=== PATIENT | male | born 2000 | race Caucasian/White ===

== ENCOUNTER 2023-03-20 23:40 | Emergency (ER) | payer SELFPAY ==
[2023-03-20 23:45] VITALS: PULSE 86; RESP 18; TEMP 36.9; O2SAT 99; BMI 27.7
--- NOTE | 2023-03-21 00:01 | ECG_ITS ---
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
--- NOTE | 2023-03-21 00:13 | ED.CHESTPAI1 ---
HPI - Chest Pain General Chief Complaint: Chest Pain Stated Complaint: CHEST PAIN Time Seen by Provider: 03/20/23 23:51 Source: patient Mode of arrival: ambulance Limitations: no limitations History of Present Illness HPI narrative: This 22-year-old male with a history of epilepsy who is on Keppra presents for evaluation of left-sided chest pain that has been ongoing since September, 7 months. Chin and his girlfriend recently relocated to [place] from [place]. He states that he has not had a chance to see a doctor for this chest pain. It is nonradiating. He is not having any pain at this time. It is not associated with shortness of breath, dizziness or diaphoresis. He does use marijuana but does not smoke cigarettes. He denies any abdominal pain nausea vomiting or diarrhea. He thinks that his pain is related to acid reflux although he denies that he is having any belching, burning or brackish taste in his mouth at any time. He has not taken any medications for reflux because he does not like to mix medications with his seizure medications. MD complaint: Reports chest pain Onset (ago): month(s) () Risk Factors Coronary artery disease risk factors: none Related Data Home Medications Medication Instructions Recorded Confirmed levetiracetam 750 mg tablet 750 mg PO BID 03/20/23 03/20/23 (Keppra) Allergies Allergy/AdvReac Type Severity Reaction Status Date / Time No Known Drug Allergies Allergy Verified 03/20/23 23:49 Review of Systems ROS Status of ROS 10 or more systems reviewed and unremarkable except as noted in history and below [facility] Medical History (Updated 03/21/23 @ 01:52 by Mary Luong MD) Social History Smoking status: Never smoker Exam Narrative Exam Narrative: Nurses note and vital signs reviewed and patient is not hypoxic. General: The patient appears well and in no apparent distress. Patient is resting comfortably on cart. He appears comfortable, he moves easily about the cart, no distress noted Skin: Warm, dry, no pallor noted. There is no rash noted. Head: Normocephalic, atraumatic Eye: Normal conjunctiva, no drainage, EOMI. PERRL Ears, Nose, Mouth, and Throat: oral mucosa is moist. Nares patent. Mouth without vesicles. Ear canals patent. Tm's without Erythema Cardiovascular: Regular Rate and Rhythm, No murmurs rubs or gallops appreciated. There is no reproducible chest wall tenderness or crepitus. There is a large tattoo over the chest wall Respiratory: Patient is in no distress, no accessory muscle use, lungs are clear to auscultation, no wheezing, rales or rhonchi Back: non-tender, no CVA tenderness bilaterally to percussion. GI: Normal bowel sounds, no tenderness to palpation, no masses appreciated. No rebound, guarding, or rigidity noted. Musculoskeletal: The patient has no evidence of calf tenderness, no pitting edema, symmetrical pulses noted bilaterally Neurological: A&O x4, normal speech Psychiatric: Cooperative Constitutional Vital Signs, click to edit/add: Last Vital Signs Temp 98.5 F 03/20/23 23:45 Pulse 86 03/20/23 23:45 Resp 18 03/20/23 23:45 Pulse Ox 99 03/20/23 23:45 O2 Del Method Room Air 03/20/23 23:45 Course Vital Signs Vital signs: Vital Signs Temperature 98.5 F 03/20/23 23:45 Pulse Rate 86 03/20/23 23:45 Respiratory Rate 18 03/20/23 23:45 Pulse Oximetry 99 03/20/23 23:45 Oxygen Delivery Method Room Air 03/20/23 23:45 Temperature 98.5 F 03/20/23 23:45 Pulse Rate 86 03/20/23 23:45 Respiratory Rate 18 03/20/23 23:45 Pulse Oximetry 99 03/20/23 23:45 Oxygen Delivery Method Room Air 03/20/23 23:45 MDM - Chest Pain Medical Records Data Medical records narrative: This 22-year-old male who is otherwise healthy and has a history of epilepsy presents for evaluation of 7 months of left-sided chest pain. It is nonradiating. It is nonreproducible. He thinks it is related to reflux but has not taken any gastrointestinal medications for it. He denies any burning in his mouth or throat, belching nausea or abdominal pain. He does not smoke or drink. He does use marijuana. EKG done upon arrival was a sinus rhythm at 69 bpm with normal axis and no acute changes. Routine labs including troponin, d-dimer, CBC with differential and comprehensive metabolic profile was ordered and is normal. A 2 view chest x-ray was ordered and was reviewed by myself and is normal. He was medicated in the emergency department with ibuprofen and remains hemodynamically stable. He will be discharged home with prescription for ibuprofen and Pepcid. He was encouraged to follow closely with family medicine. The patient's girlfriend states that she is a patient of Dr. Wells and intends to take him to Dr. Wells for his primary care. His heart score is zero. Lab Data Attestation: I reviewed the patient's lab results. Lab results narrative: Labs are normal including a d-dimer and troponin Labs: Lab Results 03/21/23 Range/Units 00:52 WBC 7.5 (4.0-11.0) 10^3/uL RBC 5.48 (4.70-6.10) 10^6/uL Hgb 16.0 (14.0-18.0) g/dL Hct 47.0 (42.0-54.0) % MCV 85.8 (80.0-94.0) fL MCH 29.2 (25.9-34.0) pg MCHC 34.0 (29.9-35.2) g/dL RDW 12.5 (11.0-15.0) % Plt Count 290 (150-450) 10^3/uL MPV 10.1 (9.5-13.5) fL Neut % (Auto) 43.9 (43.0-75.0) % Lymph % (Auto) 39.9 (20.5-60.0) % [place] % (Auto) 9.0 (1.7-12.0) % Eos % (Auto) 6.4 (0.9-7.0) % Baso % (Auto) 0.7 (0.2-2.0) % Neut # (Auto) 3.3 (1.4-6.5) 10^3/uL Lymph # (Auto) 3.0 (1.2-3.8) 10^3/uL [place] # (Auto) 0.7 (0.3-0.8) 10^3/uL Eos # (Auto) 0.5 (0.0-0.7) 10^3/uL Baso # (Auto) 0.1 (0.0-0.1) 10^3/uL Abs Immat Gran (auto) 0.01 (0.00-0.03) 10^3/uL Imm/Tot Granulo (auto) 0.1 (0.0-0.5) % D-Dimer <0.19 (<=0.59) mg/L FEU Sodium 138 (136-145) mmol/L Potassium 3.9 (3.5-5.1) mmol/L Chloride 104 (98-107) mmol/L Carbon Dioxide 33.0 H (21.0-32.0) mmol/L Anion Gap 4.9 BUN 11.0 (7.0-18.0) mg/dL Creatinine 1.01 (0.70-1.30) mg/dL Est GFR ( Amer) >60 (>=60) Est GFR (Non-Af Amer) >60 (>=60) BUN/Creatinine Ratio 10.9 Glucose 91 (74-106) mg/dL Calcium 9.7 (8.5-10.1) mg/dL Total Bilirubin 0.3 (0.2-1.0) mg/dL AST 22 (15-37) U/L ALT 69 H (16-63) U/L Alkaline Phosphatase 86 (46-116) U/L Troponin I High Sens <4.0 L (4.0-76.1) pg/mL Total Protein 7.7 (6.4-8.2) g/dL Albumin 4.0 (3.4-5.0) g/dL Globulin 3.7 g/dL Albumin/Globulin Ratio 1.1 ECG Data Attestation: I personally reviewed and interpreted this ECG as follows: (Sinus rhythm at 69 beats for minute with sinus arrhythmia, moderate right axis deviation, no acute ST segment elevation or T-wave inversion ) Heart Score History: Slightly/Non-Suspicious ECG: Normal Age: <45 years Risk Factors: No Risk Factors Troponin: <Normal Limit Total Heart Score Recommendations & Risks:: 0 Discharge Plan Discharge Chief Complaint: Chest Pain Clinical Impression: Atypical chest pain Time of Disposition Decision: 01:51 Condition: Good Prescriptions / Home Meds: No Action levetiracetam [Keppra] 750 mg tablet 750 mg PO BID Instructions: Noncardiac Chest Pain (ED) Additional Instructions: Use ibuprofen and pepcid as directed for ongoing or worsening pain. Stand Alone Forms: Portal Instructions Referrals: Physician,Non-Staff, MD [Primary Care Provider] - 1 week
[2023-03-21] MEDS: IBUPROFEN 600 MG TABLET PO (00:21)
[2023-03-21 01:01] LABS: Basophils Absolute Auto 0.1 10^3/uL (0.0-0.1); Basophils Percent Auto 0.7 % (0.2-2.0); Eosinophils Absolute Auto 0.5 10^3/uL (0.0-0.7); Eosinophils Percent Auto 6.4 % (0.9-7.0); Immature Granulocytes Abs Auto 0.01 10^3/uL (0.00-0.03); Immature Granulocytes Pct Auto 0.1 % (0.0-0.5); Lymphocytes Percent Auto 39.9 % (20.5-60.0); Mean Corpuscular Hemoglobin 29.2 pg (25.9-34.0); Mean Corpuscular Volume 85.8 fL (80.0-94.0); Mean Platelet Volume 10.1 fL (9.5-13.5); Monocytes Absolute Auto 0.7 10^3/uL (0.3-0.8); Neutrophils Absolute Auto 3.3 10^3/uL (1.4-6.5); Neutrophils Percent Auto 43.9 % (43.0-75.0); Platelet Count 290 10^3/uL (150-450); Red Blood Count 5.48 10^6/uL (4.70-6.10); Red Cell Distribution Width 12.5 % (11.0-15.0); White Blood Count 7.5 10^3/uL (4.0-11.0)
[2023-03-21 01:14] LABS: D Dimer <0.19 mg/L FEU (<=0.59)
[2023-03-21 01:16] LABS: Alanine Aminotransferase 69 U/L (16-63); Albumin Globulin Ratio 1.1; Alkaline Phosphatase 86 U/L (46-116); Anion Gap 4.9; Aspartate Amino Transferase 22 U/L (15-37); BUN Creatinine Ratio 10.9; Bilirubin Total 0.3 mg/dL (0.2-1.0); Calcium 9.7 mg/dL (8.5-10.1); Chloride 104 mmol/L (98-107); Estimated GFR (African America >60 (>=60); Estimated GFR (Non-African Ame >60 (>=60); Globulin 3.7 g/dL; Glucose 91 mg/dL (74-106); Potassium 3.9 mmol/L (3.5-5.1); Sodium 138 mmol/L (136-145); Total Protein 7.7 g/dL (6.4-8.2); Troponin I High Sensitivity <4.0 pg/mL (4.0-76.1)
--- NOTE | 2023-03-21 01:31 | XR_ITS ---
[address] [address] Patient Name: ADRIENNE FERRER MRN: [id number] date: 2000 Sex: M Assigned Patient Location: ER Current Patient Location: ED.MAIN Accession/Order Number: [id number] Exam Date: 03/21/2023 01:37 Report Date: 03/21/2023 01:57 At the request of: GAGE MARKER Procedure: XR chest 2V EXAMINATION:XR chest 2V INDICATION:CP COMPARISON:None TECHNIQUE:Frontal and lateral projections of the chest are submitted. FINDINGS: The cardiomediastinal silhouette is not enlarged. The pulmonary vascularity is within normal limits. The lungs are clear based on chest radiography. There is no costophrenic angle blunting. IMPRESSION: Unremarkable plain film examination of the chest. Electronically authenticated by: CHIP ROSA Date: 03/21/2023 01:57
== END 2023-03-21 02:11 | disposition home or self-care (01) ==
PROVIDERS: Emergency Provider Emergency Medicine
DX: R07.89 Other chest pain (principal); G40.909 Epilepsy, unspecified, not intractable, without status epilepticus; Z79.899 Other long term (current) drug therapy; F12.90 Cannabis use, unspecified, uncomplicated
CPT/HCPCS: 36415; 71046; 80053; 84484; 85025; 85378; 93005; 99285

== ENCOUNTER 2023-04-25 18:05 | Emergency (ER) | payer SELFPAY ==
[2023-04-25 18:19] VITALS: BP 137/76; PULSE 96; RESP 18; TEMP 36.7; O2SAT 96; BMI 35.5
--- NOTE | 2023-04-25 18:32 | ED_ITS ---
Documented by User: Rina Epstein 04/25/23 20:24 HPI - General Adult General Chief complaint: Skin/Abscess/Foreign Body Stated complaint: MOVING LUMP IN SIDE Time Seen by Provider: 04/25/23 18:30 Source: patient and family Mode of arrival: walk-in Limitations: no limitations History of Present Illness HPI narrative: 22 year old male presents to the ED for right-sided abd discomfort. He states he noticed a moveable lump a few months ago. He began to worry that it was something serious which brought him to the ED today. Denies fever, chills, injury, N/V/D, urinary sx. Rates his pain 2/10 at this time. Related Data Home Medications Medication Instructions Recorded Confirmed levetiracetam 750 mg tablet 750 mg PO BID 03/20/23 04/25/23 (Keppra) Allergies Allergy/AdvReac Type Severity Reaction Status Date / Time No Known Drug Allergies Allergy Verified 04/25/23 18:19 Review of Systems ROS Constitutional Denies: fever or chills Cardiovascular Denies: chest pain Respiratory Denies: shortness of breath Gastrointestinal Reports: abdominal pain; Denies: nausea, vomiting, diarrhea or constipation Genitourinary Denies: painful urination, urinary frequency or urinary urgency Musculoskeletal Denies: back pain Integumentary/Breast Denies: rash or changes in skin color [facility] Medical History (Updated 04/25/23 @ 20:18 by Rina Epstein) Social History Smoking status: Never smoker Exam Constitutional Vital Signs, click to edit/add: Last Vital Signs Temp 98.5 F 04/25/23 19:37 Pulse 78 04/25/23 19:37 Resp 14 04/25/23 19:37 BP 131/74 04/25/23 19:37 Pulse Ox 97 04/25/23 19:37 O2 Del Method Room Air 04/25/23 19:37 Common normals: no apparent distress and oriented x3 General appearance: cooperative and comfortable; not ill appearing Orientation/consciousness: Yes awake Neck & C-Spine Common normals: supple Chest Chest: symmetrical chest wall rise Respiratory Common normals: normal respiratory effort Effort & inspection: able to speak in complete sentences and symmetric chest movement Cardio Common normals: regular rate GI Common normals: soft to palpation and non-tender Inspection: normal to inspection Palpation: mass (Palpable, moveable to right mid abd. Area approx 1 cm in diameter. ) Course Vital Signs Vital signs: Vital Signs Temperature 98.1 F 04/25/23 18:19 Pulse Rate 96 H 04/25/23 18:19 Respiratory Rate 18 04/25/23 18:19 Blood Pressure 137/76 04/25/23 18:19 Pulse Oximetry 96 04/25/23 18:19 Oxygen Delivery Method Room Air 04/25/23 18:19 Temperature 98.5 F 04/25/23 19:37 Pulse Rate 78 04/25/23 19:37 Respiratory Rate 14 04/25/23 19:37 Blood Pressure 131/74 04/25/23 19:37 Pulse Oximetry 97 04/25/23 19:37 Oxygen Delivery Method Room Air 04/25/23 19:37 Medical Decision Making MDM Narrative Medical decision making narrative: CT scan was negative for acute findings. Findings were discussed with the patient. Lipoma was discussed. Follow up with a pcp for a recheck, further evaluation and treatment; a list was provided. Return precautions were discussed. Imaging Data CT scan - abdomen: Attestation: I have reviewed the pertinent imaging results. Radiologist's impression: Procedure: CT abdomen pelvis wo con EXAM: CT abdomen pelvis wo con REASON FOR EXAM: Male, 22 years, right-sided abd pain. TECHNIQUE: Computed tomography of the abdomen and pelvis is performed in the axial projection from the lung bases to the pubic symphysis. Sagittal and coronal reconstructed images are performed. Dose reduction techniques were achieved by using automated exposure control and/or adjustment of mA and/or KVP according to patient size and/or use of iterative reconstruction technique. Study was performed without IV contrast. Study was performed without oral contrast. COMPARISON: None. FINDINGS: Lung bases: The lung bases are clear. There is no pleural effusion. The visualized portions of the heart are unremarkable. The lack of intravenous contrast slightly limits evaluation of the solid abdominal organs. Liver: The liver is normal. Gallbladder: The gallbladder is normal. Spleen: The spleen is normal. Pancreas: The pancreas is normal. Adrenal glands: The adrenal glands are normal bilaterally. Right kidney: The kidney is normal in size. There is no renal calculus or hydronephrosis. Left kidney: The kidney is normal in size. There is no renal calculus or hydronephrosis. Stomach: The stomach is normal. Small bowel: The small bowel is normal. Large bowel: There may be some wall thickening involving the proximal transverse colon versus underdistention. Appendix: The appendix is visualized, and is normal. Aorta: The aorta is normal. IVC: The IVC is normal. Retroperitoneum: Normal retroperitoneum. Bladder: The bladder is normal. Pelvic organs: Normal prostate gland. Abdominal wall: Normal abdominal wall. Osseous structures: Normal bony structures. CT/CT abdomen pelvis wo con IMPRESSION: No bowel obstruction or acute renal pathology. Question some wall thickening involving the proximal transverse colon versus underdistention. This may represent mild colitis. Normal appendix. Electronically authenticated by: JESS BHAT Date: 04/25/2023 20:09 Discharge Plan Discharge Chief Complaint: Skin/Abscess/Foreign Body Clinical Impression: Abdominal pain Patient Disposition: Home, Self-Care Time of Disposition Decision: 20:18 Condition: Good Mode of Transportation: Private Vehicle Prescriptions / Home Meds: No Action levetiracetam [Keppra] 750 mg tablet 750 mg PO BID Instructions: Abdominal Pain (ED), Lipoma (ED) Additional Instructions: Return to the ER if your condition worsens. Stand Alone Forms: Portal Instructions Referrals: Physician,Non-Staff, [Primary Care Provider] - 1 week Discharge Date/Time: 04/25/23 20:21 Documented by User: Cecile Vang MD 04/27/23 08:04 HPI - General Adult General Chief complaint: Skin/Abscess/Foreign Body Stated complaint: MOVING LUMP IN SIDE Time Seen by Provider: 04/25/23 18:30 Related Data Home Medications Medication Instructions Recorded Confirmed levetiracetam 750 mg tablet 750 mg PO BID 03/20/23 04/25/23 (Keppra) Allergies Allergy/AdvReac Type Severity Reaction Status Date / Time No Known Drug Allergies Allergy Verified 04/25/23 18:19 PFS PFS Medical History (Updated 04/25/23 @ 20:18 by Rina Epstein) Social History Smoking status: Never smoker Exam Constitutional Vital Signs, click to edit/add: Last Vital Signs Temp 98.5 F 04/25/23 19:37 Pulse 78 04/25/23 19:37 Resp 14 04/25/23 19:37 BP 131/74 04/25/23 19:37 Pulse Ox 97 04/25/23 19:37 O2 Del Method Room Air 04/25/23 19:37 Course Vital Signs Vital signs: Vital Signs Temperature 98.1 F 04/25/23 18:19 Pulse Rate 96 H 04/25/23 18:19 Respiratory Rate 18 04/25/23 18:19 Blood Pressure 137/76 04/25/23 18:19 Pulse Oximetry 96 04/25/23 18:19 Oxygen Delivery Method Room Air 04/25/23 18:19 Temperature 98.5 F 04/25/23 19:37 Pulse Rate 78 04/25/23 19:37 Respiratory Rate 14 04/25/23 19:37 Blood Pressure 131/74 04/25/23 19:37 Pulse Oximetry 97 04/25/23 19:37 Oxygen Delivery Method Room Air 04/25/23 19:37 Medical Decision Making MDM Narrative Medical decision making narrative: CT scan was negative for acute findings. Findings were discussed with the patient. Lipoma was discussed. Follow up with a pcp for a recheck, further evaluation and treatment; a list was provided. Return precautions were discussed. Attending physician attestation I have reviewed the mid-level documentation, agree with the documentation, medical decision making and treatment plan as outlined by the mid-level provider. Discharge Plan Discharge Chief Complaint: Skin/Abscess/Foreign Body Clinical Impression: Abdominal pain Patient Disposition: Home, Self-Care Time of Disposition Decision: 20:18 Condition: Good Mode of Transportation: Private Vehicle Prescriptions / Home Meds: No Action levetiracetam [Keppra] 750 mg tablet 750 mg PO BID Instructions: Abdominal Pain (ED), Lipoma (ED) Additional Instructions: Return to the ER if your condition worsens. Stand Alone Forms: Portal Instructions Referrals: Physician,Non-Staff, MD [Primary Care Provider] - 1 week Discharge Date/Time: 04/25/23 20:21
--- NOTE | 2023-04-25 18:38 | PC.NURSE ---
Pt has a small lump in his right upper abdomen, feels superficial approx. 2cm x 1cm. Can only be felt on palpation.
[2023-04-25 19:37] VITALS: BP 131/74; PULSE 78; RESP 14; TEMP 36.9; O2SAT 97
== END 2023-04-25 20:21 | disposition home or self-care (01) ==
PROVIDERS: Emergency Provider Emergency Medicine
DX: R10.9 Unspecified abdominal pain (principal); Z79.899 Other long term (current) drug therapy
CPT/HCPCS: 74176; 99284

== ENCOUNTER 2023-08-23 13:08 | Emergency (ER) | payer OTHER, SELFPAY ==
[2023-08-23 13:11] VITALS: BP 153/99; PULSE 88; RESP 18; TEMP 36.8; O2SAT 99; BMI 26.3
[2023-08-23] MEDS: 0.9 % SODIUM CHLORIDE 1,000 ML 999 ML IV (13:25)
[2023-08-23 13:30] LABS: Basophils Absolute Auto 0.1 10^3/uL (0.0-0.1); Basophils Percent Auto 0.6 % (0.2-2.0); Eosinophils Absolute Auto 0.2 10^3/uL (0.0-0.7); Eosinophils Percent Auto 1.9 % (0.9-7.0); Hematocrit 48.6 % (42.0-54.0); Hemoglobin 16.7 g/dL (14.0-18.0); Immature Granulocytes Abs Auto 0.03 10^3/uL (0.00-0.03); Immature Granulocytes Pct Auto 0.3 % (0.0-0.5); Lymphocytes Absolute Auto 3.2 10^3/uL (1.2-3.8); Lymphocytes Percent Auto 36.3 % (20.5-60.0); Mean Corpuscular HGB Conc 34.4 g/dL (29.9-35.2); Mean Corpuscular Hemoglobin 28.9 pg (25.9-34.0); Mean Corpuscular Volume 84.2 fL (80.0-94.0); Mean Platelet Volume 10.6 fL (9.5-13.5); Monocytes Absolute Auto 0.7 10^3/uL (0.3-0.8); Monocytes Percent Auto 8.1 % (1.7-12.0); Neutrophils Absolute Auto 4.7 10^3/uL (1.4-6.5); Neutrophils Percent Auto 52.8 % (43.0-75.0); Platelet Count 302 10^3/uL (150-450); Red Blood Count 5.77 10^6/uL (4.70-6.10); Red Cell Distribution Width 12.4 % (11.0-15.0); White Blood Count 8.9 10^3/uL (4.0-11.0)
[2023-08-23 13:34] LABS: Bilirubin Urine NEGATIVE (NEGATIVE); Blood Urine NEGATIVE (NEGATIVE); Clarity Urine CLEAR (CLEAR); Color Urine YELLOW (YELLOW); Glucose Urine UA NEGATIVE (NEGATIVE); Ketones Urine TRACE mg/dL (NEGATIVE); Leukocyte Esterase Urine NEGATIVE (NEGATIVE); Nitrite Urine NEGATIVE (NEGATIVE); Protein Urine NEGATIVE (NEG/TRACE); Specific Gravity Urine 1.025 (1.005-1.025); Urobilinogen Urine 0.2 EU/dL (0.2-1.0); pH Urine 6.5 (5.0-9.0)
--- NOTE | 2023-08-23 13:34 | ED.GENADUL1 ---
HPI - General Adult General Chief complaint: Abdominal Pain Stated complaint: flank pain Time Seen by Provider: 08/23/23 13:17 Source: patient Mode of arrival: ambulance Limitations: no limitations History of Present Illness HPI narrative: Patient is a 23-year-old male who presents to the emergency department by ambulance for 3-day history of pain in the right flank. He states the pain began in the right abdomen and has now radiated to the right low back. He has not had any fevers, chills, vomiting. He states he does have a history of acid reflux and occasionally spits up with this. He has not had any new urinary symptoms. He denies any history of kidney issues or kidney stones. No injuries or traumas. No medications taken prior to arrival. He states he had a bowel movement today but feels as though he is straining to have a bowel movement and is wondering if he may be constipated. Related Data Home Medications Medication Instructions Recorded Confirmed levetiracetam 750 mg tablet 1,500 mg PO .MORNING 03/20/23 08/23/23 (Keppra) levetiracetam 750 mg tablet 1,125 mg PO BEDTIME 08/23/23 08/23/23 (Keppra) Previous Rx's Medication Instructions Recorded hyoscyamine sulfate 0.125 mg 0.125 mg PO Q6H PRN abdominal pain 08/23/23 tablet (Levsin) #12 tabs methocarbamol 750 mg tablet 750 mg PO TID PRN pain #10 tabs 08/23/23 ondansetron 4 mg disintegrating 4 mg PO Q6H PRN nausea and 08/23/23 tablet vomiting #12 tabs Allergies Allergy/AdvReac Type Severity Reaction Status Date / Time No Known Drug Allergies Allergy Verified 04/25/23 18:19 Review of Systems ROS Constitutional Denies: fever or chills Ears, nose, mouth, and throat Denies: throat pain Cardiovascular Denies: chest pain Respiratory Denies: shortness of breath or cough Gastrointestinal Reports: abdominal pain; Denies: nausea, vomiting or diarrhea Genitourinary Denies: painful urination or urinary frequency Musculoskeletal Reports: back pain; Denies: neck pain Integumentary/Breast Denies: rash Neurological Denies: headache Endocrine Denies: excessive urination [facility] Medical History (Updated 08/23/23 @ 14:19 by BIPIN Rodrigez) Epilepsy ?G40.909 - Epilepsy, unspecified, not intractable, without status epilepticus (ICD-10) Social History Smoking status: Never smoker Exam Narrative Exam Narrative: Gen.: Awake, alert, in no distress Head: Normocephalic, atraumatic ENT: Moist mucous membranes Respiratory: No respiratory distress Gastrointestinal: Abdomen is soft, nondistended and diffusely tender in the right lower quadrant, right flank and right mid abdomen with no guarding or rebound. No CVA tenderness Extremities: Moves extremities equally Psych: Normal mood and affect Neuro: No focal neuro deficit Skin: Warm, dry, intact Constitutional Vital Signs, click to edit/add: Last Vital Signs Temp 98.2 F 08/23/23 13:11 Pulse 78 08/23/23 14:03 Resp 14 08/23/23 14:03 BP 125/71 08/23/23 14:03 Pulse Ox 99 08/23/23 14:03 O2 Del Method Room Air 08/23/23 14:03 Course Vital Signs Vital signs: Vital Signs Temperature 98.2 F 08/23/23 13:11 Pulse Rate 88 08/23/23 13:11 Respiratory Rate 18 08/23/23 13:11 Blood Pressure 153/99 H 08/23/23 13:11 Pulse Oximetry 99 08/23/23 13:11 Oxygen Delivery Method Room Air 08/23/23 13:11 Temperature 98.2 F 08/23/23 13:11 Pulse Rate 78 08/23/23 14:03 Respiratory Rate 14 08/23/23 14:03 Blood Pressure 125/71 08/23/23 14:03 Pulse Oximetry 99 08/23/23 14:03 Oxygen Delivery Method Room Air 08/23/23 14:03 Medical Decision Making MDM Narrative Medical decision making narrative: Patient treated with IV fluids, Toradol, Zofran. He expressed his concerns about medication interactions with his Keppra. Laboratory studies reviewed and noted showing mild elevation of LFTs with normal bilirubin. CT shows the patient has a normal gallbladder, normal appendix and no evidence of kidney stone. There was mild collapse of the bladder which the radiologist recommended correlating for cystitis although the patient has no urinary symptoms and has a normal urine specimen. He will be treated with Levsin, Zofran for home. Follow-up with PCP and return to the ER if symptoms change or worsen. Medical Records Medical records reviewed: Yes I reviewed the patient's medical records Lab Data Lab results reviewed: Yes I reviewed the patient's lab results Labs: Lab Results 08/23/23 08/23/23 Range/Units 13:16 13:20 WBC 8.9 (4.0-11.0) 10^3/uL RBC 5.77 (4.70-6.10) 10^6/uL Hgb 16.7 (14.0-18.0) g/dL Hct 48.6 (42.0-54.0) % MCV 84.2 (80.0-94.0) fL MCH 28.9 (25.9-34.0) pg MCHC 34.4 (29.9-35.2) g/dL RDW 12.4 (11.0-15.0) % Plt Count 302 (150-450) 10^3/uL MPV 10.6 (9.5-13.5) fL Neut % (Auto) 52.8 (43.0-75.0) % Lymph % (Auto) 36.3 (20.5-60.0) % [place] % (Auto) 8.1 (1.7-12.0) % Eos % (Auto) 1.9 (0.9-7.0) % Baso % (Auto) 0.6 (0.2-2.0) % Neut # (Auto) 4.7 (1.4-6.5) 10^3/uL Lymph # (Auto) 3.2 (1.2-3.8) 10^3/uL [place] # (Auto) 0.7 (0.3-0.8) 10^3/uL Eos # (Auto) 0.2 (0.0-0.7) 10^3/uL Baso # (Auto) 0.1 (0.0-0.1) 10^3/uL Abs Immat Gran (auto) 0.03 (0.00-0.03) 10^3/uL Imm/Tot Granulo (auto) 0.3 (0.0-0.5) % Sodium 139 (136-145) mmol/L Potassium 3.7 (3.5-5.1) mmol/L Chloride 101 (98-107) mmol/L Carbon Dioxide 28.7 (21.0-32.0) mmol/L Anion Gap 13.0 BUN 14.0 (7.0-18.0) mg/dL Creatinine 0.98 (0.70-1.30) mg/dL Est GFR ( Amer) >60 (>=60) Est GFR (Non-Af Amer) >60 (>=60) BUN/Creatinine Ratio 14.3 Glucose 98 (74-106) mg/dL Lactate 1.6 (0.4-2.0) mmol/L Calcium 9.7 (8.5-10.1) mg/dL Total Bilirubin 0.5 (0.2-1.0) mg/dL AST 33 (15-37) U/L ALT 105 H (16-63) U/L Alkaline Phosphatase 122 H (46-116) U/L Total Protein 8.8 H (6.4-8.2) g/dL Albumin 4.4 (3.4-5.0) g/dL Globulin 4.4 g/dL Albumin/Globulin Ratio 1.0 Lipase 23.0 (16.0-77.0) U/L Urine Color Yellow (YELLOW) Urine Clarity Clear (CLEAR) Urine pH 6.5 (5.0-9.0) Ur Specific [place] 1.025 (1.005-1.025) Urine Protein Negative (NEG/TRACE) mg/dL Urine Glucose (UA) Negative (NEGATIVE) mg/dL Urine Ketones Trace A (NEGATIVE) mg/dL Urine Occult Blood Negative (NEGATIVE) Urine Nitrite Negative (NEGATIVE) Urine Bilirubin Negative (NEGATIVE) Urine Urobilinogen 0.2 (0.2-1.0) EU/dL Ur Leukocyte Esterase Negative (NEGATIVE) Imaging Data CT scan - abdomen: Attestation: I have reviewed the pertinent imaging results. Radiologist's impression: Procedure: CT abdomen pelvis wo con EXAM: CT abdomen pelvis wo con HISTORY: right flank pain COMPARISON: CT abdomen and CT pelvis studies dated 04/25/2023 TECHNIQUE: CT abdomen and CT pelvis studies were performed without the use of intravenous contrast. Multiple axial images were obtained. Formatting coronal and sagittal images were obtained and reviewed. FINDINGS: Abdomen: Visualized lower lung guzman appear grossly unremarkable. Views of the liver and spleen fail to demonstrate evidence of focal mass in either organ. Gallbladder, pancreas and adrenal glands appear grossly unremarkable. Stomach appears grossly unremarkable. Bowel loops appear grossly unremarkable. Visualized vascular structures appear grossly intact. No evidence of adenopathy in the retroperitoneum. No obvious renal mass or obstructive uropathy. No evidence of renal or ureteral calculus. Tiny fat filled umbilical hernia without bowel content similar to prior study. Pelvis: No evidence of ureteral or bladder calculus. No evidence of obstructive uropathy. No obvious bladder mass. Mild bladder wall thickening which may be due to its somewhat contracted state, correlate to exclude any possibility of mild cystitis. Prostate gland is grossly within normal limits for size. Perirectal fat planes appear grossly intact. Bowel loops appear grossly unremarkable. Visualized vascular structures appear grossly intact. No evidence of adenopathy. The appendix is visualized and appears grossly unremarkable. Slight convexity of the lumbar spine to the right. Calcification on the right compatible with a phlebolith. IMPRESSION: CT abdomen and CT pelvis studies demonstrate tiny fat filled umbilical hernia similar to the prior study. Correlate to exclude any possibility of mild cystitis. Electronically authenticated by: JOCELYN MENDOZA Date: 08/23/2023 14:05 Discharge Plan Discharge Chief Complaint: Abdominal Pain Clinical Impression: Abdominal pain Patient Disposition: Home, Self-Care Time of Disposition Decision: 14:19 Condition: Good Mode of Transportation: Private Vehicle Prescriptions / Home Meds: New hyoscyamine sulfate [Levsin] 0.125 mg tablet 0.125 mg PO Q6H PRN (Reason: abdominal pain) Qty: 12 0RF ondansetron 4 mg tablet,disintegrating 4 mg PO Q6H PRN (Reason: nausea and vomiting) Qty: 12 0RF methocarbamol 750 mg tablet 750 mg PO TID PRN (Reason: pain) Qty: 10 0RF No Action levetiracetam [Keppra] 750 mg tablet 1,500 mg PO .MORNING levetiracetam [Keppra] 750 mg tablet 1,125 mg PO BEDTIME Instructions: Acute Abdominal Pain (ED) Stand Alone Forms: Portal Instructions Referrals: Physician,Non-Staff, MD [Primary Care Provider] - 1 week Discharge Date/Time: 08/23/23 14:43
[2023-08-23 13:36] LABS: Urine Microscopic Indicated NO
[2023-08-23 13:49] LABS: Lactate/Lactic Acid 1.6 mmol/L (0.4-2.0)
[2023-08-23] MEDS: ONDANSETRON PF 4 MG/2 ML VIAL IV (13:56)
[2023-08-23] MEDS: KETOROLAC TROMETHAMINE 30 MG/ML VIAL IVP (13:56)
[2023-08-23 13:57] LABS: Alanine Aminotransferase 105 U/L (16-63); Albumin Level 4.4 g/dL (3.4-5.0); Alkaline Phosphatase 122 U/L (46-116); Aspartate Amino Transferase 33 U/L (15-37); BUN Creatinine Ratio 14.3; Bilirubin Total 0.5 mg/dL (0.2-1.0); Calcium 9.7 mg/dL (8.5-10.1); Carbon Dioxide 28.7 mmol/L (21.0-32.0); Chloride 101 mmol/L (98-107); Estimated GFR (African America >60 (>=60); Estimated GFR (Non-African Ame >60 (>=60); Globulin 4.4 g/dL; Glucose 98 mg/dL (74-106); Potassium 3.7 mmol/L (3.5-5.1); Sodium 139 mmol/L (136-145); Total Protein 8.8 g/dL (6.4-8.2)
[2023-08-23 14:03] VITALS: BP 125/71; PULSE 78; RESP 14; O2SAT 99
== END 2023-08-23 14:43 | disposition home or self-care (01) ==
PROVIDERS: Physician Assistant; Emergency Provider Emergency Medicine
DX: R10.9 Unspecified abdominal pain (principal); K21.9 Gastro-esophageal reflux disease without esophagitis; G40.909 Epilepsy, unspecified, not intractable, without status epilepticus; Z79.899 Other long term (current) drug therapy; K42.9 Umbilical hernia without obstruction or gangrene
CPT/HCPCS: 36415; 74176; 80053; 81003; 83605; 83690; 85025; 96374; 96375; 99284

== ENCOUNTER 2023-12-10 09:30 | Emergency (ER) | payer OTHER, SELFPAY ==
[2023-12-10 09:34] VITALS: BP 146/84; PULSE 93; TEMP 36.9; O2SAT 98; BMI 26.6
--- NOTE | 2023-12-10 09:59 | ED_ITS ---
HPI HPI - General Adult General Chief complaint: Abdominal Pain Stated complaint: BLOOD IN STOOL Time Seen by Provider: 12/10/23 09:42 Source: patient Mode of arrival: walk-in History of Present Illness HPI narrative: Patient presenting to us with a one-time history of having some streak of blood on stool, he mentioned that he have no abdominal pain he has a history of constipation., The patient also have some rectal itching sometimes he denies any other complaints. He mentioned that he have a history of pilonidal cyst almost 3 weeks ago that resolved. No fever no chills no other concerns Related Data Home Medications ?Medication ?Instructions ?Recorded ?Confirmed levetiracetam 750 mg tablet 1,500 mg PO .MORNING 03/20/23 08/23/23 (Keppra) levetiracetam 750 mg tablet 1,125 mg PO BEDTIME 08/23/23 08/23/23 (Keppra) Previous Rx's ?Medication ?Instructions ?Recorded hyoscyamine sulfate 0.125 mg 0.125 mg PO Q6H PRN abdominal pain 08/23/23 tablet (Levsin) #12 tabs methocarbamol 750 mg tablet 750 mg PO TID PRN pain #10 tabs 08/23/23 ondansetron 4 mg disintegrating 4 mg PO Q6H PRN nausea and 08/23/23 tablet vomiting #12 tabs bisacodyl 5 mg tablet,delayed 5 mg PO DAILY PRN constipation #10 12/10/23 release (Dulcolax (bisacodyl)) tabs hydrocortisone acetate 25 mg 25 mg DE DAILY PRN itching #12 ea 12/10/23 rectal suppository (Anusol-HC) Allergies Allergy/AdvReac Type Severity Reaction Status Date / Time No Known Drug Allergies Allergy Verified 04/25/23 18:19 Opioid HPI Opioid Management Most Recent Opioid Data: No Data to Display Review of Systems ROS Status of ROS 10 or more systems reviewed and unremark able except as noted in history and below [facility] Medical History (Updated 12/10/23 @ 09:59 by Sylvia Arriola MD) Epilepsy ?G40.909 - Epilepsy, unspecified, not intractable, without status epilepticus (ICD-10) Social History Smoking status: Never smoker Exam Narrative Exam Narrative: Nurses notes and vital signs reviewed and patient is not hypoxic. General: Well-appearing and in no apparent distress. Skin: Warm, dry, no pallor noted. No rash. Head: Normocephalic, atraumatic. Neck: Supple, non-tender. Eye: Pupils are equal, round and EOMI. No scleral icterus. Ears, Nose, Mouth, and Throat: TM are clear, no nasal mucosal hypertrophy. Oral mucosa is moist, no posterior oropharynx erythema, uvula is mid-line Cardiovascular: Regular Rate and Rhythm without murmur, gallop or rub. Respiratory: No accessory muscle use or respiratory distress. Lungs are clear to auscultation, no wheezing, rales or rhonchi Chest Wall: no tenderness Back: No midline thoracic or lumbar vertebral tenderness. No CVA tenderness Musculoskeletal: normal ROM, no calf or popliteal tenderness, no lower extremity edema/swelling GI: Abdomen is soft, non-distended. Normal bowel sounds. No masses appreciated. No tenderness to palpation. No rebound, guarding, or rigidity noted. Neurological: A&O x4. No cranial nerve dysfunction observed. No truncal ataxia. Moves all extremities. Sensation intact. Psychiatric: Cooperative and interactive. Normal mood and affect. Constitutional Vital Signs, click to edit/add: Last Vital Signs Temp 98.4 F 12/10/23 09:34 Pulse 93 H 12/10/23 09:34 Resp 18 12/10/23 09:34 BP 146/84 H 12/10/23 09:34 Pulse Ox 98 12/10/23 09:34 O2 Del Method Room Air 12/10/23 09:34 Course Vital Signs Vital signs: Vital Signs Temperature 98.4 F 12/10/23 09:34 Pulse Rate 93 H 12/10/23 09:34 Respiratory Rate 18 12/10/23 09:34 Blood Pressure 146/84 H 12/10/23 09:34 Pulse Oximetry 98 12/10/23 09:34 Oxygen Delivery Method Room Air 12/10/23 09:34 Temperature 98.4 F 12/10/23 09:34 Pulse Rate 93 H 12/10/23 09:34 Respiratory Rate 18 12/10/23 09:34 Blood Pressure 146/84 H 12/10/23 09:34 Pulse Oximetry 98 12/10/23 09:34 Oxygen Delivery Method Room Air 12/10/23 09:34 Medical Decision Making [facility] Narrative Medical decision making narrative: The patient rectal exam showed no acute pathology But with the patient history and his presentation right now his presentation mostly secondary to constipation and possible internal hemorrhoids he was treated with Anusol as well as Dulcolax instructed on increasing hydration and fiber intake. The patient referred to the primary care as outpatient The patient did ask about the lipoma that he was diagnosed within his right side of the abdominal wall that when I evaluated is measuring almost less than 1 cm on the right side and only show up when the patient stands up with no tenderness no other complaints and I did explain to him that the lipoma is mostly benign he just need to follow-up with the primary care. The patient is to follow up with primary care physician in next 2-3 days or to return to the emergency department should any of the signs or symptoms worsen or new symptoms develop. The patient agrees with the following Diagnosis and Treatment plan and the patient will be discharged home. Discharge Plan Discharge Stand Alone Forms: Portal Instructions Chief Complaint: Abdominal Pain Clinical Impression: Constipation Qualifiers: Constipation type: other constipation type Qualified Code(s): K59.09 - Other constipation Patient Disposition: Home, Self-Care Time of Disposition Decision: 09:59 Condition: Good Prescriptions / Home Meds: New bisacodyl [Dulcolax (bisacodyl)] 5 mg tablet,delayed release (DR/EC) 5 mg PO DAILY PRN (Reason: constipation) Qty: 10 0RF hydrocortisone acetate [Anusol-HC] 25 mg suppository 25 mg DE DAILY PRN (Reason: itching) Qty: 12 0RF No Action levetiracetam [Keppra] 750 mg tablet 1,500 mg PO .MORNING levetiracetam [Keppra] 750 mg tablet 1,125 mg PO BEDTIME hyoscyamine sulfate [Levsin] 0.125 mg tablet 0.125 mg PO Q6H PRN (Reason: abdominal pain) Qty: 12 0RF ondansetron 4 mg tablet,disintegrating 4 mg PO Q6H PRN (Reason: nausea and vomiting) Qty: 12 0RF methocarbamol 750 mg tablet 750 mg PO TID PRN (Reason: pain) Qty: 10 0RF Print Language: Macedonian Referrals: Physician,Non-Staff, MD [Primary Care Provider] - 1 week
== END 2023-12-10 10:08 | disposition home or self-care (01) ==
PROVIDERS: Emergency Provider Emergency Medicine
DX: K59.09 Other constipation (principal); Z79.899 Other long term (current) drug therapy; G40.909 Epilepsy, unspecified, not intractable, without status epilepticus
CPT/HCPCS: 99283

== ENCOUNTER 2024-07-10 05:11 | Emergency (ER) | payer OTHER, SELFPAY ==
[2024-07-10 05:14] VITALS: BP 162/100; PULSE 96; TEMP 36.7; O2SAT 98; BMI 25.8
--- NOTE | 2024-07-10 05:20 | ED_ITS ---
HPI - Nausea/Vomiting/Diarrhea General Chief complaint: Nausea/Vomiting/Diarrhea Stated complaint: VOMITTING Time Seen by Provider: 07/10/24 05:20 Source: patient Mode of arrival: walk-in Limitations: no limitations History of Present Illness HPI Narrative: This 24-year-old male with a history of epilepsy presents for evaluation of nausea vomiting and diarrhea. The patient woke up this morning and had abdominal cramps and went to the bathroom and had watery stool that was yellow. He then had an episode of vomiting. He denies any chest pain or shortness of breath. He denies any abdominal pain at this time. He has not had a fever. Related Data Home Medications ?Medication ?Instructions ?Recorded ?Confirmed levetiracetam 750 mg tablet 1,500 mg PO .MORNING 03/20/23 07/10/24 (Keppra) levetiracetam 750 mg tablet 1,125 mg PO BEDTIME 08/23/23 07/10/24 (Keppra) Allergies Allergy/AdvReac Type Severity Reaction Status Date / Time No Known Drug Allergies Allergy Verified 07/10/24 05:17 Review of Systems ROS Status of ROS 10 or more systems reviewed and unremark able except as noted in history and below [facility] Medical History (Updated 07/10/24 @ 06:05 by Mary Luong MD) Epilepsy ?G40.909 - Epilepsy, unspecified, not intractable, without status epilepticus (ICD-10) Social History Smoking status: Never smoker Exam Narrative Exam Narrative: Vital signs and Nursing Notes reviewed: Patient is afebrile with a normal pulse, blood pressure is elevated 160/100, he is not hypoxic with pulse ox of 98% on room air General: Awake, alert, oriented, no acute distress, lying comfortably on the stretcher, no respiratory distress, no active vomiting HEENT: Normocephalic atraumatic, mucous membranes are moist and pink, eyes are clear, normal conjunctiva, vision is grossly intact, posterior pharynx is normal in appearance. Chest: Lungs are clear to auscultation with good air entry, there is no wheezing rhonchi or rales appreciated no accessory muscle use, patient is speaking in complete sentences-no chest wall tenderness to palpation CVS: Regular rate and rhythm S1-S2, no murmurs rubs or gallops, pulses are brisk and equal bilaterally ABD: Soft, nondistended, nontender, no rebound guarding or rigidity, bowel sounds are normal, no pulsatile masses appreciated Extremities: Moving all extremities, no lower extremity tenderness or swelling noted, negative Homans' sign, pulses are brisk and equal bilaterally Skin: Normal in appearance without rash,pallor, petechiae or purpura Neuro: No focal deficits Constitutional Vital Signs, click to edit/add: Last Vital Signs Temp 98.0 F 07/10/24 05:14 Pulse 96 H 07/10/24 05:14 Resp 18 07/10/24 05:14 BP 162/100 H 07/10/24 05:14 Pulse Ox 98 07/10/24 05:14 O2 Del Method Room Air 07/10/24 05:14 Course Vital Signs Vital signs: Vital Signs Temperature 98.0 F 07/10/24 05:14 Pulse Rate 96 H 07/10/24 05:14 Respiratory Rate 18 07/10/24 05:14 Blood Pressure 162/100 H 07/10/24 05:14 Pulse Oximetry 98 07/10/24 05:14 Oxygen Delivery Method Room Air 07/10/24 05:14 Temperature 98.0 F 07/10/24 05:14 Pulse Rate 96 H 07/10/24 05:14 Respiratory Rate 18 07/10/24 05:14 Blood Pressure 162/100 H 07/10/24 05:14 Pulse Oximetry 98 07/10/24 05:14 Oxygen Delivery Method Room Air 07/10/24 05:14 MDM - Nausea/Vomiting/Diarrhea MDM Narrative Medical decision making narrative: This 24-year-old male with a history of epilepsy presents for evaluation of nausea vomiting diarrhea upon awakening this morning. He had yellow watery stool and an episode of emesis. He has eaten at [employer] recently but had a chicken sandwich. His vital signs are stable, abdomen was soft. He had an additional episode of diarrhea while in the emergency department. He was medicated with Toradol, Zofran and Pepcid. On reevaluation he is feeling better. He is tolerating a popsicle. Routine labs are reviewed. He has a white count of 12.8 and a stable hemoglobin. Electrolytes are normal. LFTs are normal. His glucose is mildly elevated at 120. Lab Data Labs: Lab Results 07/10/24 Range/Units 05:19 WBC 12.8 H (4.0-11.0) 10^3/uL RBC 5.83 (4.70-6.10) 10^6/uL Hgb 16.9 (14.0-18.0) g/dL Hct 48.4 (42.0-54.0) % MCV 83.0 (80.0-94.0) fL MCH 29.0 (25.9-34.0) pg MCHC 34.9 (29.9-35.2) g/dL RDW 12.3 (11.0-15.0) % Plt Count 304 (150-450) 10^3/uL MPV 10.5 (9.5-13.5) fL Neut % (Auto) 82.4 H (43.0-75.0) % Lymph % (Auto) 9.2 L (20.5-60.0) % [place] % (Auto) 6.8 (1.7-12.0) % Eos % (Auto) 1.2 (0.9-7.0) % Baso % (Auto) 0.2 (0.2-2.0) % Neut # (Auto) 10.6 H (1.4-6.5) 10^3/uL Lymph # (Auto) 1.2 (1.2-3.8) 10^3/uL [place] # (Auto) 0.9 H (0.3-0.8) 10^3/uL Eos # (Auto) 0.2 (0.0-0.7) 10^3/uL Baso # (Auto) 0.0 (0.0-0.1) 10^3/uL Abs Immat Gran (auto) 0.03 (0.00-0.03) 10^3/uL Imm/Tot Granulo (auto) 0.2 (0.0-0.5) % Sodium 140 (136-145) mmol/L Potassium 4.1 (3.5-5.1) mmol/L Chloride 104 (98-107) mmol/L Carbon Dioxide 27.7 (21.0-32.0) mmol/L Anion Gap 12.4 BUN 11.0 (7.0-18.0) mg/dL Creatinine 1.05 (0.70-1.30) mg/dL Est GFR ( Amer) >60 (>=60 mL/min/1.73m^2) Est GFR (Non-Af Amer) >60 (>=60 mL/min/1.73m^2) BUN/Creatinine Ratio 10.5 Glucose 120 H (74-106) mg/dL Calcium 9.5 (8.5-10.1) mg/dL Total Bilirubin 0.9 (0.2-1.0) mg/dL AST 24 (15-37) U/L ALT 62 (16-63) U/L Alkaline Phosphatase 98 (46-116) U/L Total Protein 7.8 (6.4-8.2) g/dL Albumin 4.1 (3.4-5.0) g/dL Globulin 3.7 g/dL Albumin/Globulin Ratio 1.1 Discharge Plan Discharge Chief Complaint: Nausea/Vomiting/Diarrhea Clinical Impression: Gastroenteritis Patient Disposition: Home, Self-Care Time of Disposition Decision: 06:05 Condition: Good Prescriptions / Home Meds: No Action levetiracetam [Keppra] 750 mg tablet 1,500 mg PO .MORNING levetiracetam [Keppra] 750 mg tablet 1,125 mg PO BEDTIME Print Language: Slovak Instructions: Gastroenteritis (ED) Referrals: Physician,Non-Staff, MD [Primary Care Provider] - 1 week
[2024-07-10 05:35] LABS: Basophils Percent Auto 0.2 % (0.2-2.0); Eosinophils Absolute Auto 0.2 10^3/uL (0.0-0.7); Eosinophils Percent Auto 1.2 % (0.9-7.0); Hematocrit 48.4 % (42.0-54.0); Hemoglobin 16.9 g/dL (14.0-18.0); Immature Granulocytes Abs Auto 0.03 10^3/uL (0.00-0.03); Immature Granulocytes Pct Auto 0.2 % (0.0-0.5); Lymphocytes Absolute Auto 1.2 10^3/uL (1.2-3.8); Lymphocytes Percent Auto 9.2 % (20.5-60.0); Mean Corpuscular HGB Conc 34.9 g/dL (29.9-35.2); Mean Platelet Volume 10.5 fL (9.5-13.5); Monocytes Absolute Auto 0.9 10^3/uL (0.3-0.8); Monocytes Percent Auto 6.8 % (1.7-12.0); Neutrophils Absolute Auto 10.6 10^3/uL (1.4-6.5); Neutrophils Percent Auto 82.4 % (43.0-75.0); Platelet Count 304 10^3/uL (150-450); Red Blood Count 5.83 10^6/uL (4.70-6.10); Red Cell Distribution Width 12.3 % (11.0-15.0); White Blood Count 12.8 10^3/uL (4.0-11.0)
[2024-07-10 05:47] LABS: Alanine Aminotransferase 62 U/L (16-63); Albumin Globulin Ratio 1.1; Albumin Level 4.1 g/dL (3.4-5.0); Alkaline Phosphatase 98 U/L (46-116); Anion Gap 12.4; Aspartate Amino Transferase 24 U/L (15-37); BUN Creatinine Ratio 10.5; Bilirubin Total 0.9 mg/dL (0.2-1.0); Calcium 9.5 mg/dL (8.5-10.1); Carbon Dioxide 27.7 mmol/L (21.0-32.0); Chloride 104 mmol/L (98-107); Estimated GFR (African America >60 (>=60 mL/min/1.73m^2); Estimated GFR (Non-African Ame >60 (>=60 mL/min/1.73m^2); Globulin 3.7 g/dL; Glucose 120 mg/dL (74-106); Potassium 4.1 mmol/L (3.5-5.1); Sodium 140 mmol/L (136-145); Total Protein 7.8 g/dL (6.4-8.2)
[2024-07-10] MEDS: FAMOTIDINE/PF 20 MG/2 ML VIAL IV (05:51)
[2024-07-10] MEDS: KETOROLAC TROMETHAMINE 30 MG/ML VIAL IVP (05:51)
[2024-07-10] MEDS: ONDANSETRON PF 4 MG/2 ML VIAL IV (05:51)
[2024-07-10 06:11] VITALS: BP 127/72
== END 2024-07-10 06:33 | disposition home or self-care (01) ==
PROVIDERS: Emergency Provider Emergency Medicine
DX: K52.9 Noninfective gastroenteritis and colitis, unspecified (principal); G40.909 Epilepsy, unspecified, not intractable, without status epilepticus
CPT/HCPCS: 36415; 80053; 85025; 96374; 96375; 99284; J1885; J2405

== ENCOUNTER 2024-07-10 11:11 | Emergency (ER) | payer OTHER, SELFPAY ==
[2024-07-10 11:12] VITALS: BP 124/73; PULSE 98; TEMP 37.1; O2SAT 100; BMI 25.8
--- NOTE | 2024-07-10 11:50 | XR_ITS ---
The [address] [address] Patient Name: ADRIENNE FERRER MRN: [id number] date: 2000 Sex: M Assigned Patient Location: ER Current Patient Location: ER Accession/Order Number: [id number] Exam Date: 07/10/2024 12:15 Report Date: 07/10/2024 12:44 At the request of: WILLIAM WADDELL Procedure: XR chest 1V EXAMINATION: XR chest 1V HISTORY: Rule out mediastinal air from Boerhaave syndrome COMPARISON: XR chest 03/21/2023 FINDINGS: LUNGS: No significant pulmonary parenchymal abnormalities. VASCULATURE: No increased pulmonary vasculature. PLEURA: No pneumothorax, effusion, or pleural thickening. CARDIAC: No cardiomegaly or cardiac silhouette abnormality. MEDIASTINUM: No visible mass or adenopathy. BONES: No fracture or visible bone lesion. OTHER: Negative. XR/XR chest 1V IMPRESSION: 1. No appreciable mediastinal free air. 2. No acute cardiopulmonary process. Electronically authenticated by: RIVER TORREZ Date: 07/10/2024 12:44
[2024-07-10] MEDS: 0.9 % SODIUM CHLORIDE 1,000 ML 999 ML IV (12:01)
[2024-07-10 12:09] LABS: Hematocrit 48.9 % (42.0-54.0); Hemoglobin 16.6 g/dL (14.0-18.0); Mean Corpuscular HGB Conc 33.9 g/dL (29.9-35.2); Mean Corpuscular Volume 85.5 fL (80.0-94.0); Mean Platelet Volume 10.4 fL (9.5-13.5); Platelet Count 241 10^3/uL (150-450); Red Blood Count 5.72 10^6/uL (4.70-6.10); Red Cell Distribution Width 12.3 % (11.0-15.0); White Blood Count 12.5 10^3/uL (4.0-11.0)
[2024-07-10 12:18] LABS: Anion Gap 13.2; BUN Creatinine Ratio 10.5; Calcium 9.1 mg/dL (8.5-10.1); Carbon Dioxide 25.6 mmol/L (21.0-32.0); Chloride 106 mmol/L (98-107); Estimated GFR (African America >60 (>=60 mL/min/1.73m^2); Estimated GFR (Non-African Ame >60 (>=60 mL/min/1.73m^2); Glucose 104 mg/dL (74-106); Potassium 3.8 mmol/L (3.5-5.1); Sodium 141 mmol/L (136-145)
[2024-07-10 12:31] LABS: Monocytes Absolute Manual 0.87 10^3/uL (0.30-0.80); Segmented Neut Absolute Manual 11.62 10^3/uL (1.4-6.5)
[2024-07-10] MEDS: DIPHENOXYLATE HCL 2.5 MG/ATROPINE 0.025 MG TABLET 1 TAB PO (13:07)
--- NOTE | 2024-07-10 13:18 | ED_ITS ---
HPI HPI - General Adult General Chief complaint: Seizure Stated complaint: SEISURE Time Seen by Provider: 07/10/24 11:25 Source: patient and family Mode of arrival: ambulance Limitations: no limitations History of Present Illness HPI narrative: This patient was brought by squad to the emergency room. He was seen here earlier and felt to have gastroenteritis. He is a excellent historian. They do not have a family doctor in the area. He has a diagnosis of epilepsy and is extremely compliant with his Keppra. Recently his neurologist checked a level and told him that it was too high so they adjusted in a downward fashion his Keppra and he is very compliant with it. He has had more diarrhea since he has been home and has slight nausea. He has not run a fever. After one of the e pisodes of vomiting today he noticed some bright red blood l blood. There was no clots. He has not seen any coffee grounds or black tarry type of vomitus. He has never received any blood transfusions and denies any history of Giselle- Ellis tears esophagitis or gastritis. Related Data Home Medications ?Medication ?Instructions ?Recorded ?Confirmed levetiracetam 750 mg tablet 1,500 mg PO .MORNING 03/20/23 07/10/24 (Keppra) levetiracetam 750 mg tablet 1,125 mg PO BEDTIME 08/23/23 07/10/24 (Keppra) Allergies Allergy/AdvReac Type Severity Reaction Status Date / Time No Known Drug Allergies Allergy Verified 07/10/24 05:17 Opioid HPI Opioid Management Most Recent Opioid Data: No Data to Display [facility] Medical History (Updated 07/10/24 @ 13:22 by Rob Silver MD) Epilepsy ?G40.909 - Epilepsy, unspecified, not intractable, without status epilepticus (ICD-10) Social History Smoking status: Never smoker Little interest or pleasure in doing things: not at all Feeling down, depressed, or hopeless: not at all Exam Narrative Exam Narrative: Awake alert [place] x 3. I did review his previous charts from previous study. Cognition and mentation are normal GCS is 15. HEENT shows no evidence of ocular edema or abnormal cranial nerves. Eye examination extraocular muscles are normal. No scleral icterus. He shows no indication of intraoral lacerations or buccal abnormality. Abdomen is soft and supple with no peritoneal findings no guarding rebound or rigidity noted. Constitutional Vital Signs, click to edit/add: Last Vital Signs Temp 98.8 F 07/10/24 11:12 Pulse 98 H 07/10/24 11:12 Resp 16 07/10/24 11:12 BP 124/73 07/10/24 11:12 Pulse Ox 100 07/10/24 11:12 O2 Del Method Room Air 07/10/24 11:12 Course Vital Signs Vital signs: Vital Signs Temperature 98.8 F 07/10/24 11:12 Pulse Rate 98 H 07/10/24 11:12 Respiratory Rate 16 07/10/24 11:12 Blood Pressure 124/73 07/10/24 11:12 Pulse Oximetry 100 07/10/24 11:12 Oxygen Delivery Method Room Air 07/10/24 11:12 Temperature 98.8 F 07/10/24 11:12 Pulse Rate 98 H 07/10/24 11:12 Respiratory Rate 16 07/10/24 11:12 Blood Pressure 124/73 07/10/24 11:12 Pulse Oximetry 100 07/10/24 11:12 Oxygen Delivery Method Room Air 07/10/24 11:12 Medical Decision Making Lab Data Labs: Lab Results 07/10/24 Range/Units 12:03 WBC 12.5 H (4.0-11.0) 10^3/uL RBC 5.72 (4.70-6.10) 10^6/uL Hgb 16.6 (14.0-18.0) g/dL Hct 48.9 (42.0-54.0) % MCV 85.5 (80.0-94.0) fL MCH 29.0 (25.9-34.0) pg MCHC 33.9 (29.9-35.2) g/dL RDW 12.3 (11.0-15.0) % Plt Count 241 (150-450) 10^3/uL MPV 10.4 (9.5-13.5) fL Seg Neuts % (Manual) 93.0 H (43.0-75.0) Lymphocytes % (Manual) 0.0 L (20.5-60.0) % Monocytes % (Manual) 7.0 (1.7-12.0) % Eosinophils % (Manual) 0.0 L (0.9-7.0) % Basophils % (Manual) 0.0 L (0.2-2.0) % Neutrophils # (Manual) 11.62 H (1.4-6.5) 10^3/uL Lymphocytes # (Manual) 0.00 L (1.20-3.80) 10^3/uL Monocytes # (Manual) 0.87 H (0.30-0.80) 10^3/uL Eosinophils # (Manual) 0.00 (0.00-0.70) 10^3/uL Basophils # (Manual) 0.00 (0.00-0.10) 10^3/uL Sodium 141 (136-145) mmol/L Potassium 3.8 (3.5-5.1) mmol/L Chloride 106 (98-107) mmol/L Carbon Dioxide 25.6 (21.0-32.0) mmol/L Anion Gap 13.2 BUN 12.0 (7.0-18.0) mg/dL Creatinine 1.14 (0.70-1.30) mg/dL Est GFR ( Amer) >60 (>=60 mL/min/1.73m^2) Est GFR (Non-Af Amer) >60 (>=60 mL/min/1.73m^2) BUN/Creatinine Ratio 10.5 Glucose 104 (74-106) mg/dL Calcium 9.1 (8.5-10.1) mg/dL Discharge Plan Discharge Chief Complaint: Seizure Clinical Impression: Generalized seizure Patient Disposition: Home, Self-Care Time of Disposition Decision: 13:21 Prescriptions / Home Meds: No Action levetiracetam [Keppra] 750 mg tablet 1,500 mg PO .MORNING levetiracetam [Keppra] 750 mg tablet 1,125 mg PO BEDTIME Print Language: Angolan Additional Instructions: Call us in several days for Keppra level. Continue present medication. Increase fluid intake. Referrals: Physician,Non-Staff, MD [Primary Care Provider] - 1 week
== END 2024-07-10 13:33 | disposition home or self-care (01) ==
PROVIDERS: Emergency Provider Emergency Medicine Emergency Medical Services
DX: G40.909 Epilepsy, unspecified, not intractable, without status epilepticus (principal); Z79.899 Other long term (current) drug therapy; K52.9 Noninfective gastroenteritis and colitis, unspecified
CPT/HCPCS: 36415; 71045; 80048; 80053; 80177; 85007; 85025; 85027; 96374; 96375; 99284; J1885; J2405

== ENCOUNTER 2024-09-06 16:19 | Emergency (ER) | payer OTHER, MEDICAID, SELFPAY ==
[2024-09-06 16:40] VITALS: BP 123/80; PULSE 110; TEMP 37.2; O2SAT 96; BMI 26.8
--- NOTE | 2024-09-06 16:51 | ED.URI1 ---
HPI - URI/Sore Throat General Chief Complaint: Upper Respiratory Infection Stated Complaint: left ear clogged Time Seen by Provider: 09/06/24 16:34 Source: patient Limitations: no limitations History of Present Illness HPI Narrative: Patient is a 24-year-old male with a history of seizure disorder who presents to the emergency department for a popping sensation in the left ear and the right side of the neck after coughing. He was diagnosed with strep throat 1 week ago and states he has 3 days left of amoxicillin to take for his throat. He states today his throat is feeling better but he still has a harsh cough and when he coughed at home prior to arrival he felt a pop in the left ear and felt a pop in the right side of the neck. He has not had any objective fevers, vomiting or diarrhea. No medications prior to arrival Related Data Home Medications ?Medication ?Instructions ?Recorded ?Confirmed levetiracetam 750 mg tablet 1,500 mg PO .MORNING 03/20/23 07/10/24 (Keppra) levetiracetam 750 mg tablet 1,125 mg PO BEDTIME 08/23/23 07/10/24 (Keppra) Previous Rx's ?Medication ?Instructions ?Recorded juglkcmsdyjcqhu-zcaahkrltptwwyk-NN 10 ml PO Q6H PRN cold symptoms 09/06/24 2 mg-30 mg-10 mg/5 mL oral syrup #200 mL (Bromfed DM) cefdinir 300 mg capsule 300 mg PO BID 10 days #20 caps 09/06/24 Allergies Allergy/AdvReac Type Severity Reaction Status Date / Time No Known Drug Allergies Allergy Verified 07/10/24 05:17 Review of Systems ROS Constitutional Denies: fever or chills Ears, nose, mouth, and throat Denies: throat pain or nasal congestion Cardiovascular Denies: chest pain Respiratory Reports: cough; Denies: shortness of breath Gastrointestinal Denies: nausea or vomiting Integumentary/Breast Denies: rash Neurological Denies: numbness in extremities or weakness in extremities Hematologic/Lymphatic Denies: easy bruising or easy bleeding [facility] Medical History (Updated 09/06/24 @ 16:50 by BIPIN Rodrigez) Epilepsy ?G40.909 - Epilepsy, unspecified, not intractable, without status epilepticus (ICD-10) Social History Smoking status: Never smoker Little interest or pleasure in doing things: not at all Feeling down, depressed, or hopeless: not at all Exam Narrative Exam Narrative: Gen.: Awake, alert, in no distress Head: Normocephalic, atraumatic ENT: Moist mucous membranes, left TM is erythematous and injected, fluid-filled. Right TM is minimally erythematous and injected. Right neck with no swelling, torticollis or pulsatile mass appreciated. Respiratory: No respiratory distress, lungs clear bilaterally Cardio: Regular rate and rhythm Extremities: Moves extremities equally Psych: Normal mood and affect Neuro: No focal neuro deficit Skin: Warm, dry, intact Constitutional Vital Signs, click to edit/add: Last Vital Signs Temp 98.9 F 09/06/24 16:40 Pulse 110 H 09/06/24 16:40 Resp 20 09/06/24 16:40 BP 123/80 09/06/24 16:40 Pulse Ox 96 09/06/24 16:40 O2 Del Method Room Air 09/06/24 16:40 Course Vital Signs Vital signs: Vital Signs Temperature 98.9 F 09/06/24 16:40 Pulse Rate 110 H 09/06/24 16:40 Respiratory Rate 20 09/06/24 16:40 Blood Pressure 123/80 09/06/24 16:40 Pulse Oximetry 96 09/06/24 16:40 Oxygen Delivery Method Room Air 09/06/24 16:40 Temperature 98.9 F 09/06/24 16:40 Pulse Rate 110 H 09/06/24 16:40 Respiratory Rate 20 09/06/24 16:40 Blood Pressure 123/80 09/06/24 16:40 Pulse Oximetry 96 09/06/24 16:40 Oxygen Delivery Method Room Air 09/06/24 16:40 MDM - URI/Sore Throat MDM Narrative Medical decision making narrative: Patient instructed to stop the amoxicillin, he is placed on cefdinir for better coverage of his cough. Exam is consistent with a left otitis media. No evidence of significant trauma to the neck at this time. Patient is hemodynamically stable. Placed on cefdinir and Bromfed-DM for home. Return to the ER if symptoms change or worsen. SUPERVISED APC VISIT, PHYSICIAN ATTESTATION: Based on the medical record the care appears appropriate. ? Medical Records Attestation: I reviewed the patient's medical records. Discharge Plan Discharge Chief Complaint: Upper Respiratory Infection Clinical Impression: Upper respiratory infection, Acute left otitis media Patient Disposition: Home, Self-Care Time of Disposition Decision: 16:50 Condition: Good Prescriptions / Home Meds: New tzojoqpbnwnthdh-qlohaapyj-HE [Bromfed DM] 2-30-10 mg/5 mL syrup 10 ml PO Q6H PRN (Reason: cold symptoms) Qty: 200 0RF cefdinir 300 mg capsule 300 mg PO BID 10 Days Qty: 20 0RF No Action levetiracetam [Keppra] 750 mg tablet 1,500 mg PO .MORNING levetiracetam [Keppra] 750 mg tablet 1,125 mg PO BEDTIME Print Language: Omani Instructions: Ear Infection (ED), Upper Respiratory Infection (ED) Referrals: Physician,Non-Staff, MD [Primary Care Provider] - 1 week
== END 2024-09-06 17:05 | disposition home or self-care (01) ==
PROVIDERS: Emergency Provider Emergency Medicine
DX: J06.9 Acute upper respiratory infection, unspecified (principal); H66.92 Otitis media, unspecified, left ear; G40.909 Epilepsy, unspecified, not intractable, without status epilepticus
CPT/HCPCS: 99283

== ENCOUNTER 2024-09-30 10:40 | Emergency (ER) | payer OTHER, MEDICAID, SELFPAY ==
[2024-09-30 10:52] VITALS: BP 117/73; PULSE 73; TEMP 36.9; O2SAT 98; BMI 25.8
--- NOTE | 2024-09-30 11:21 | ED.SKABFB1 ---
HPI - Skin/Abscess/Foreign Bdy General Chief complaint: Skin/Abscess/Foreign Body Stated complaint: RASH IN MALE AREA Time Seen by Provider: 09/30/24 11:08 Source: patient and family Mode of arrival: walk-in Limitations: no limitations History of Present Illness HPI narrative: The patient is coming to the ER with a rash that developed in his groin area The patient mentioned that he have to walk for long distances in the cold weather wearing very warm close and that sometimes make him sweat more He denies any other complaint Related Data Home Medications ?Medication ?Instructions ?Recorded ?Confirmed levetiracetam 750 mg tablet 1,125 mg PO .MORNING 03/20/23 09/30/24 (Keppra) levetiracetam 750 mg tablet 750 mg PO BEDTIME 08/23/23 09/30/24 (Keppra) Previous Rx's ?Medication ?Instructions ?Recorded jzdwkbhripektjg-vhpdhnejhfengho-MV 10 ml PO Q6H PRN cold symptoms 09/06/24 2 mg-30 mg-10 mg/5 mL oral syrup #200 mL (Bromfed DM) cefdinir 300 mg capsule 300 mg PO BID 10 days #20 caps 09/06/24 cephalexin 500 mg capsule 500 mg PO Q8H 7 days #21 caps 09/30/24 clotrimazole 1 % topical solution 1 applic topical BID 2 weeks #30 mL 09/30/24 Allergies Allergy/AdvReac Type Severity Reaction Status Date / Time No Known Drug Allergies Allergy Verified 09/30/24 10:57 Review of Systems ROS Status of ROS 10 or more systems reviewed and unremarkable except as noted in history and below [facility] Medical History (Updated 09/30/24 @ 11:22 by Sylvia Arriola MD) Epilepsy ?G40.909 - Epilepsy, unspecified, not intractable, without status epilepticus (ICD-10) Social History Smoking status: Never smoker Little interest or pleasure in doing things: not at all Feeling down, depressed, or hopeless: not at all Exam Narrative Exam Narrative: Nurses notes and vital signs reviewed and patient is not hypoxic. Skin examination: The groin area the patient have a dry circular rash that is macular General: Well-appearing and in no apparent distress. Head: Normocephalic, atraumatic. Neck: Supple, non-tender. Eye: Pupils are equal, round and EOMI. No scleral icterus. Ears, Nose, Mouth, and Throat: TM are clear, no nasal mucosal hypertrophy. Oral mucosa is moist, no posterior oropharynx erythema, uvula is mid-line Cardiovascular: Regular Rate and Rhythm without murmur, gallop or rub. Respiratory: No accessory muscle use or respiratory distress. Lungs are clear to auscultation, no wheezing, rales or rhonchi Chest Wall: no tenderness Back: No midline thoracic or lumbar vertebral tenderness. No CVA tenderness Musculoskeletal: normal ROM, no calf or popliteal tenderness, no lower extremity edema/swelling GI: Abdomen is soft, non-distended. Normal bowel sounds. No masses appreciated. Constitutional Vital Signs, click to edit/add: Last Vital Signs Temp 98.4 F 09/30/24 10:52 Pulse 73 09/30/24 10:52 Resp 18 09/30/24 10:52 BP 117/73 09/30/24 10:52 Pulse Ox 98 09/30/24 10:52 O2 Del Method Room Air 09/30/24 10:52 Course Vital Signs Vital signs: Vital Signs Temperature 98.4 F 09/30/24 10:52 Pulse Rate 73 09/30/24 10:52 Respiratory Rate 18 09/30/24 10:52 Blood Pressure 117/73 09/30/24 10:52 Pulse Oximetry 98 09/30/24 10:52 Oxygen Delivery Method Room Air 09/30/24 10:52 Temperature 98.4 F 09/30/24 10:52 Pulse Rate 73 09/30/24 10:52 Respiratory Rate 18 09/30/24 10:52 Blood Pressure 117/73 09/30/24 10:52 Pulse Oximetry 98 09/30/24 10:52 Oxygen Delivery Method Room Air 09/30/24 10:52 MDM - Skin/Abscess/Foreign Bdy MDM Narrative Medical decision making narrative: The patient rash does not look vesicular or secondary to bacterial infection but more of a tenia possibly rash The patient was started on clotrimazole rash in addition to there was an area that is mildly red that was treated with Keflex for possible cellulitis The patient is to follow up with primary care physician in next 2-3 days or to return to the emergency department should any of the signs or symptoms worsen or new symptoms develop. The patient agrees with the following Diagnosis and Treatment plan and the patient will be discharged home. Discharge Plan Discharge Chief Complaint: Skin/Abscess/Foreign Body Clinical Impression: Tinea corporis, Cellulitis Patient Disposition: Home, Self-Care Time of Disposition Decision: 11:22 Mode of Transportation: Private Vehicle Prescriptions / Home Meds: New clotrimazole 1 % solution 1 applic topical BID 14 Days Qty: 30 0RF cephalexin 500 mg capsule 500 mg PO Q8H 7 Days Qty: 21 0RF No Action levetiracetam [Keppra] 750 mg tablet 1,125 mg PO .MORNING levetiracetam [Keppra] 750 mg tablet 750 mg PO BEDTIME fybjcjzdpcitvpo-ezabshcja-VL [Bromfed DM] 2-30-10 mg/5 mL syrup 10 ml PO Q6H PRN (Reason: cold symptoms) Qty: 200 0RF cefdinir 300 mg capsule 300 mg PO BID 10 Days Qty: 20 0RF Print Language: Hebrew Instructions: Cellulitis (ED), Tinea Corporis (ED), Skin Yeast Infection (ED) Referrals: Physician,Non-Staff, MD [Primary Care Provider] - 1 week Discharge Date/Time: 09/30/24 11:28
== END 2024-09-30 11:28 | disposition home or self-care (01) ==
PROVIDERS: Emergency Provider Emergency Medicine
DX: B35.4 Tinea corporis (principal); L03.314 Cellulitis of groin
CPT/HCPCS: 99283

== ENCOUNTER 2024-10-19 16:44 | Emergency (ER) | payer OTHER, SELFPAY ==
[2024-10-19 17:20] VITALS: BP 149/76; PULSE 102; TEMP 36.8; O2SAT 96; BMI 19.0
--- NOTE | 2024-10-19 18:12 | ED.WOUNDLAC1 ---
HPI - Wound/Laceration General Chief Complaint: Wound/Laceration Stated Complaint: DEEP LACERATION FINGER Time Seen by Provider: 10/19/24 18:00 Source: patient History of Present Illness HPI narrative: Patient is a 24-year-old male who presents to the emergency department for the evaluation of a laceration that is superficial to the medial aspect of the right index finger. He states he cut the finger on glass prior to arrival. He had no other associated injuries. Unknown last tetanus. Bleeding is well-controlled at this time Related Data Home Medications ?Medication ?Instructions ?Recorded ?Confirmed levetiracetam 750 mg tablet 1,125 mg PO .MORNING 03/20/23 09/30/24 (Keppra) levetiracetam 750 mg tablet 750 mg PO BEDTIME 08/23/23 09/30/24 (Keppra) Previous Rx's ?Medication ?Instructions ?Recorded biskfyyhmblqjxi-vpuzuzivllalbhb-ZQ 10 ml PO Q6H PRN cold symptoms 09/06/24 2 mg-30 mg-10 mg/5 mL oral syrup #200 mL (Bromfed DM) cefdinir 300 mg capsule 300 mg PO BID 10 days #20 caps 09/06/24 cephalexin 500 mg capsule 500 mg PO Q8H 7 days #21 caps 09/30/24 clotrimazole 1 % topical solution 1 applic topical BID 2 weeks #30 mL 09/30/24 Allergies Allergy/AdvReac Type Severity Reaction Status Date / Time No Known Drug Allergies Allergy Verified 09/30/24 10:57 Review of Systems ROS Constitutional Denies: fever or chills Ears, nose, mouth, and throat Denies: throat pain or nasal congestion Respiratory Denies: shortness of breath Gastrointestinal Denies: nausea or vomiting Integumentary/Breast Denies: rash Neurological Denies: numbness in extremities or weakness in extremities Hematologic/Lymphatic Denies: easy bruising or easy bleeding [facility] Medical History (Updated 10/19/24 @ 18:33 by BIPIN Rodrigez) Epilepsy ?G40.909 - Epilepsy, unspecified, not intractable, without status epilepticus (ICD-10) Social History Smoking status: Never smoker Little interest or pleasure in doing things: not at all Feeling down, depressed, or hopeless: not at all Exam Narrative Exam Narrative: Gen.: Awake, alert, in no distress Head: Normocephalic, atraumatic ENT: Moist mucous membranes Respiratory: No respiratory distress Extremities: 2 cm superficial laceration noted over the medial aspect of the right index finger, middle phalanx. No subcutaneous tissue exposure. Laceration does not extend over the joint. No active bleeding. No evidence of tendon deficit or laceration Psych: Normal mood and affect Neuro: No focal neuro deficit Skin: Warm, dry Constitutional Vital Signs, click to edit/add: Last Vital Signs Temp 98.2 F 10/19/24 17:20 Pulse 102 H 10/19/24 17:20 Resp 18 10/19/24 17:20 BP 149/76 H 10/19/24 17:20 Pulse Ox 96 10/19/24 17:20 O2 Del Method Room Air 10/19/24 17:20 Course Vital Signs Vital signs: Vital Signs Temperature 98.2 F 10/19/24 17:20 Pulse Rate 102 H 10/19/24 17:20 Respiratory Rate 18 10/19/24 17:20 Blood Pressure 149/76 H 10/19/24 17:20 Pulse Oximetry 96 10/19/24 17:20 Oxygen Delivery Method Room Air 10/19/24 17:20 Temperature 98.2 F 10/19/24 17:20 Pulse Rate 102 H 10/19/24 17:20 Respiratory Rate 18 10/19/24 17:20 Blood Pressure 149/76 H 10/19/24 17:20 Pulse Oximetry 96 10/19/24 17:20 Oxygen Delivery Method Room Air 10/19/24 17:20 MDM - Wound/Laceration MDM Narrative Medical decision making narrative: Laceration does not extend into the subcutaneous tissue and is well aligned, area was cleansed and dressed with tissue adhesive. Patient was placed in a finger splint with gauze dressing. 2 Steri-Strips were placed over the laceration after the area was approximated with tissue adhesive. He remains neurovascularly intact. Tetanus updated in the ER. Follow-up with PCP and return to the ER if symptoms change or worsen SUPERVISED APC VISIT, PHYSICIAN ATTESTATION: Based on the medical record the care appears appropriate. ? Medical Records Attestation: I reviewed the patient's medical records. Discharge Plan Discharge Chief Complaint: Wound/Laceration Clinical Impression: Finger laceration Patient Disposition: Home, Self-Care Time of Disposition Decision: 18:32 Condition: Good Prescriptions / Home Meds: No Action levetiracetam [Keppra] 750 mg tablet 1,125 mg PO .MORNING levetiracetam [Keppra] 750 mg tablet 750 mg PO BEDTIME uvezwzesamuresn-oolxokwbj-HQ [Bromfed DM] 2-30-10 mg/5 mL syrup 10 ml PO Q6H PRN (Reason: cold symptoms) Qty: 200 0RF cefdinir 300 mg capsule 300 mg PO BID 10 Days Qty: 20 0RF clotrimazole 1 % solution 1 applic topical BID 14 Days Qty: 30 0RF cephalexin 500 mg capsule 500 mg PO Q8H 7 Days Qty: 21 0RF Print Language: Maori Instructions: Laceration (ED), Skin Adhesive Care (ED) Referrals: Physician,Non-Staff, MD [Primary Care Provider] - 1 week
[2024-10-19] MEDS: ADACEL DIPH,PERTUSS(ACELL),TET VAC/PF 0.5 ML ADULT SYRINGE IM (18:19)
== END 2024-10-19 18:38 | disposition home or self-care (01) ==
PROVIDERS: Emergency Provider Student in an Organized Health Care Education/Training Program
DX: S61.210A Laceration without foreign body of right index finger without damage to nail, initial encounter (principal); W25.XXXA Contact with sharp glass, initial encounter; Z23 Encounter for immunization
CPT/HCPCS: 12001; 90471; 90715; 99284

== ENCOUNTER 2025-08-28 18:48 | Emergency (ER) | payer OTHER, SELFPAY ==
--- OUTSIDE RECORDS SUMMARY | 2024-06-02 16:30 | XMS_ITS ---
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 Name Role Phone Nia Dover Primary Care Provider [phone] zMigration, Provider Unavailable Unavailable REASON FOR VISIT Multum To Medispan Conversion Encounter Medications Medication SIG (Take, Route, Frequency, Duration) Notes Start Date End Date Status levETIRAcetam 500 MG Tablet 2 tablets orally 2 t imes a day; Duration: 30 days Active Social History Sex Assigned At : Social History Observation Description Sex Assigned At Male Encounters Encounter Location Date Provider Diagnosis [facility], [address] [address] 06/02/2024 Provider zMigration Generalized epilepsy, intractable G40.319 Assessments Encounter Date Diagnosis (ICD Code) Assessment Notes Treatment Notes Treatment Clinical Notes Section Notes 06/02/2024 Generalized epilepsy, intractabl e (ICD-10 - G40.319) Plan Of Treatment Medication Medication Name Sig Start Date Stop Date Notes levETIRAcetam 500 MG Tablet 2 tablets orally 2 t imes a day; Duration: 30 days Progress Notes * Rosa RODRÍGUEZAloOB:2000 ([age] yo M)Acc No.[id number]:06/02/2024 Patient:?Sonia Rodríguez :?:2000???Age:24 Y???Sex:MaleDate: 4Phone:[phone]:[facility] [place], [id number]: Nia Dover Subjective: * Chief Complaints: * M ultum To Medispan Conversion Encounter Assessment: * Assessment: 1.?Generalized epilepsy, intractable - G40.319 (Primary)??? Plan: * Treatment: Refill levETIRAcetam Tablet, 500 MG, 2 tablets, orally, 2 times a day, 30 days, 120 Tablet, Refills2.?? * Electronic signature of Provider zMigration on 08/28/2025 at 08:07 PM ESTSign off status: Pending * Provider: Date: 0 06/02/2024 Generated for Printing/Faxing/eTransmitting on:?08/28/2025 08:07 PM EST
--- OUTSIDE RECORDS SUMMARY | 2025-08-27 14:00 | XMS_ITS | Encounter Summary ---
Author Organization [facility] Address [address] [place] [address] Care Team Providers Care Television Audio Engineer Name Role Phone Unallocated, John Provider Primary Care Provi yajaira Te Gutierrez DO Unavailable Shakila Morataya Unavailable Reason for Visit * ReasonCommentsConsultMultiple lipomas Encounter Details DateTypeDepartmentCare Team (Latest Contact Info)Yxpeojorxot48/16/2025 2:00 PM ESTConsult [facility] [address] [id number] Humberto Feliciano MD [address] [address] Social History Tobacco UseTypesPacks/DayYears UsedDateSmoking Tobacco: Never AssessedSex and Gender InformationValueDate RecordedSex Assigned at BirthNot on fileLegal Sex Male08/31/2024 8:04 AM ESTGender IdentityNot on fileSexual OrientationNot on filedocumented as of this encounter Plan of Treatment Not on file documented as of this encounter Visit Diagnoses Not on filedocumented in this encounter Care Teams Team MemberRelationshipSpecialtyStart DateEnd Date Unallocated, John Hugo MD [address] [place] [address] PCP - GeneralFamily Rgauw[place]03/20/24 Te Gutierrez DO [address] [facility] [address] [place] [id number] Referring PhysicianNeurology11/29/24 Shakila Morataya PA Physician AssistantNeurology11/29/24documented as of this encounter
[2025-08-28 18:55] VITALS: BP 111/81; PULSE 83; TEMP 37.2; O2SAT 98; BMI 27.1
[2025-08-28 19:20] LABS: SARS-CoV-2 Ag NEGATIVE (NEGATIVE)
--- NOTE | 2025-08-28 20:00 | ED.URI1 ---
HPI - URI/Sore Throat General Chief Complaint: Upper Respiratory Infection Stated Complaint: Upper respiratory symptoms Time Seen by Provider: 08/28/25 19:54 Source: patient History of Present Illness HPI Narrative: 25 year old male presents to the ED for cough, congestion, fatigue, chills. Onset was this morning. Denies fever, SOB, N/V/D. Related Data Home Medications ?Medication ?Instructions ?Recorded ?Confirmed levetiracetam 750 mg tablet 1,125 mg PO .MORNING 03/20/23 09/30/24 (Keppra) levetiracetam 750 mg tablet 750 mg PO BEDTIME 08/23/23 09/30/24 (Keppra) Previous Rx's ?Medication ?Instructions ?Recorded oiuxbknwujeeojq-riepjvoewhqmtmb-WM 10 ml PO Q6H PRN cold symptoms 09/06/24 2 mg-30 mg-10 mg/5 mL oral syrup #200 mL (Bromfed DM) cefdinir 300 mg capsule 300 mg PO BID 10 days #20 caps 09/06/24 cephalexin 500 mg capsule 500 mg PO Q8H 7 days #21 caps 09/30/24 clotrimazole 1 % topical solution 1 applic topical BID 2 weeks #30 mL 09/30/24 benzonatate 100 mg capsule 100 mg PO TID PRN cough #20 caps 08/28/25 guaifenesin 600 mg tablet, 600 mg PO BID PRN congestion #10 08/28/25 extended release 12 hr (Mucinex) tabs Allergies Allergy/AdvReac Type Severity Reaction Status Date / Time No Known Drug Allergies Allergy Verified 09/30/24 10:57 Review of Systems ROS Constitutional Reports: chills and fatigue; Denies: fever Ears, nose, mouth, and throat Reports: nasal discharge and nasal congestion; Denies: throat pain, neck pain, ear pain or ear discharge Cardiovascular Denies: chest pain Respiratory Reports: cough; Denies: shortness of breath Gastrointestinal Denies: abdominal pain, nausea, vomiting or diarrhea Genitourinary Denies: painful urination Musculoskeletal Denies: back pain or neck pain Neurological Denies: headache PFSH PFSH Medical History (Updated 08/28/25 @ 19:58 by Rina Epstein) Epilepsy ?G40.909 - Epilepsy, unspecified, not intractable, without status epilepticus (ICD-10) Social History Smoking status: Never smoker Little interest or pleasure in doing things: not at all Feeling down, depressed, or hopeless: not at all Exam Constitutional Vital Signs, click to edit/add: Last Vital Signs Temp 99.0 F 08/28/25 18:55 Pulse 83 08/28/25 18:55 Resp 18 08/28/25 18:55 BP 111/81 08/28/25 18:55 Pulse Ox 98 08/28/25 18:55 O2 Del Method Room Air 08/28/25 18:55 HENMT Common normals: external ears normal, moist oral mucous membranes and oropharynx normal Mouth: oral and palatal mucosa normal, lip normal and tongue normal Throat: posterior oropharynx normal Eye Common normals: conjunctivae normal and no scleral icterus Neck & C-Spine Common normals: supple Chest Chest: symmetrical chest wall rise Respiratory Common normals: normal respiratory effort and clear to auscultation bilaterally Effort & inspection: able to speak in complete sentences and symmetric chest movement Cardio Common normals: regular rate and regular rhythm Neuro Common normals: oriented x3, moves all extremities and no focal motor deficits Speech: speech normal Course Vital Signs Vital signs: Vital Signs Temperature 99.0 F 08/28/25 18:55 Pulse Rate 83 08/28/25 18:55 Respiratory Rate 18 08/28/25 18:55 Blood Pressure 111/81 08/28/25 18:55 Pulse Oximetry 98 08/28/25 18:55 Oxygen Delivery Method Room Air 08/28/25 18:55 Temperature 99.0 F 08/28/25 18:55 Pulse Rate 83 08/28/25 18:55 Respiratory Rate 18 08/28/25 18:55 Blood Pressure 111/81 08/28/25 18:55 Pulse Oximetry 98 08/28/25 18:55 Oxygen Delivery Method Room Air 08/28/25 18:55 MDM - URI/Sore Throat MDM Narrative Medical decision making narrative: Covid-19 and influenza were negative. Findings were discussed. Prescriptions were provided for mucinex and tessalon perles. Follow up with pcp for a recheck, further evaluation and treatment. Medical Records Attestation: I reviewed the patient's medical records. Lab Data Attestation: I reviewed the patient's lab results. Labs: Lab Results 08/28/25 Range/Units 19:00 Influenza Type A Ag Negative Influenza Type B Ag Negative SARS-CoV-2 Ag (CV2AG) Negative (NEGATIVE) Discharge Plan Discharge Chief Complaint: Upper Respiratory Infection Clinical Impression: Upper respiratory infection, viral Patient Disposition: Home, Self-Care Time of Disposition Decision: 19:58 Condition: Good Mode of Transportation: Private Vehicle Prescriptions / Home Meds: New benzonatate 100 mg capsule 100 mg PO TID PRN (Reason: cough) Qty: 20 0RF guaifenesin [Mucinex] 600 mg tablet extended release 12hr 600 mg PO BID PRN (Reason: congestion) Qty: 10 0RF No Action levetiracetam [Keppra] 750 mg tablet 1,125 mg PO .MORNING levetiracetam [Keppra] 750 mg tablet 750 mg PO BEDTIME qppyggwhfrtrera-phyzxgeau-DD [Bromfed DM] 2-30-10 mg/5 mL syrup 10 ml PO Q6H PRN (Reason: cold symptoms) Qty: 200 0RF cefdinir 300 mg capsule 300 mg PO BID 10 Days Qty: 20 0RF clotrimazole 1 % solution 1 applic topical BID 14 Days Qty: 30 0RF cephalexin 500 mg capsule 500 mg PO Q8H 7 Days Qty: 21 0RF Print Language: Chadian Instructions: Upper Respiratory Infection (ED) Additional Instructions: Return to the ED for worsening symptoms. Referrals: Physician,Non-Staff, MD [Primary Care Provider] - 1 week
--- OUTSIDE RECORDS SUMMARY | 2025-08-28 20:08 | XMS_ITS | Encounter Summary ---
Author Organization [facility] Address [address] [place] [address] Care Team Providers Care Manager Concrete Name Role Phone Unallocated, John Provider Primary Care Provi yajaira Te Gutierrez DO Unavailable Shakila Morataya Unavailable Encounter Details DateTypeDepartmentCare Team (Latest Contact Info)Ibbwherclww88/16/2025Travel Social History Tobacco UseTypesPacks/DayYears UsedDateSmoking Tobacco: Never AssessedSex and Gender InformationValueDate RecordedSex Assigned at BirthNot on fileLegal Sex Male08/31/2024 8:04 AM ESTGender IdentityNot on fileSexual OrientationNot on filedocumented as of this encounter Plan of Treatment Not on file documented as of this encounter Visit Diagnoses Not on filedocumented in this encounter Care Teams Team MemberRelationshipSpecialtyStart DateEnd Date Unallocated, John ProviderMD [address] [place] [address] PCP - GeneralFamily Wmmkwjcw34/20/24 Te Gutierrez DO [address] [place] [address] Referring PhysicianNeurology3 Shakila Morataya PA Physician AssistantNeurology3documented as of this encounter
--- OUTSIDE RECORDS SUMMARY | 2025-08-28 20:08 | XMS_ITS | Patient Health Record ---
Author Organization [facility], [facility] Address [address] [place] [address] Care Team Providers Care Driver Merchandiser Name Role Phone Nia Dover Primary Care Provider Reason For Referral No Information Medications Medication SIG (Take, Route, Frequency, Duration) Notes Start Date End Date Status levETIRAcetam 500 MG Tablet 2 tablets orally 2 t imes a day; Duration: 30 days Active Social History Tobacco Use: Social History Observation Description Date Details (start date - stop date) Never Smoker NA - NA Sex Assigned At : Social History Observation Description Sex Assigned At Male Social History Social HistorySocial InfoQuestionAnswerNotesCaffeine:consumed daily:coffee, tea, carbonated beveragesamount =1 - 2 drinksEducationlevel:High School diploma Alcohol:Did you have a drink containing alcohol in the past year?NoPoints0 InterpretationNegativeTobacco Use/SmokingAre you a smoker?NeverSexual Activity: Have you had sex in the past 12 months? (vaginal, anal or oral)NoHave you ever had an STD?NoAdditional DetailsCategorySocial InfoOptionsDetailsSocial History Drug use:no Problems Problem Type SNOMED Code ICD Code Onset Dates Problem Status W/U Status Risk Notes Problem Posttraumatic stress disorder (47320329) PTSD (post-traumatic stress disorder) (F43.10) ActiveconfirmedProblemGeneralized epilepsy, intractable (G40.319)Activeconfirmed Plan Of Treatment No Information Insurance Providers Payer Name Payer Address Payer Phone Subscriber Number Group Number Insured Name Patient Relationship to Insured Coverage Start Date Coverage End Date Medicaid [address] [place] [phone] [id number] Leela Rodríguez - patient is the [id number] 2020 Medical (General) History Medical History History ICD Code Epilepsy PTSDSurgical History Surgery Date(Month/Year)
--- OUTSIDE RECORDS SUMMARY | 2025-08-28 20:08 | XMS_ITS | Clinical Summary ---
Author Organization [facility] Address [address] [place] [address] Care Team Providers Care Printing Equipment Mechanic Apprentice Name Role Phone Unallocated, [facility] Provider MD Primary Care Provi yajaira Te Gutierrez DO Unavailable Shakila Morataya Unavailable Allergies No known active allergies Medications MedicationSigDispense QuantityRefillsLast FilledStart DateEnd DateStatus levETIRAcetam (Keppra) 750 MG tablet Take 750 mg by mouth in the morning and 750 mg before bedtime.Active busPIRone (Buspar) 5 MG tablet Take 5 mg by mouth in the morning and 5 mg before bedtime.Active lamoTRIgine (LaMICtal) 25 MG tablet Indications:Generalized convulsive epilepsy (HCC)Take 1 tablet (25 mg) by mouth in the morning and 1 tablet (25 mg) before bedtime. 60 tablet /6Active levETIRAcetam (Keppra) 750 MG tablet Indications:Generalized convulsive epilepsy (HCC)Take 1 and a half tablets by mouth in the morning and 1 tablet before bedtime. 90 tablet 5Active Encounters DateTypeDepartmentCare FklxUgxigowibmu15/16/2025 2:00 PM ESTConsult [facility] [address] [place] [address] Humberto Feliciano MD 08/27/20252893Pmycfk67/19/2025Travelfrom Last 3 Months Social History Tobacco UseTypesPacks/DayYears UsedDateSmoking Tobacco: Never AssessedSex and Gender InformationValueDate RecordedSex Assigned at BirthNot on fileLegal Sex Male08/31/2024 8:04 AM ESTGender IdentityNot on fileSexual OrientationNot on file Last Filed Vital Signs Vital SignReadingTime TakenCommentsBlood Vohfszpt530/8204 9:39 AM EDT Oucrv159812/24/2024 9:39 AM EDTTemperature--Respiratory Shax822712/24/2024 9:39 AM EDTOxygen Kvuiilsyxp34%12/24/2024 9:39 AM EDTInhaled Oxygen Concentration-- Rgvyck40.8 kg (165 lb)12/24/2024 9:39 AM NEXEracgg245 cm (5' 8.5 )12/24/2024 9:39 AM EDTBody Mass Index24.72012/24/2024 9:39 AM EDT Plan of Treatment Health MaintenanceDue DateLast DoneCommentsCOVID-19 Vaccine ( season) 2025Influenza Vaccine (#1)2025Pneumococcal Vaccine: Pediatrics (0 to 5 Years) and At-Risk Patients (6 to 64 Years)Aged OutNo longer eligible based on patient's age to complete this topic Insurance Care Teams Team MemberRelationshipSpecialtyStart DateEnd Date Unallocated, [facility] Provider, [address] [place] [address] PCP - GeneralFamily Kspdgwfv21/20/24 Te Gutierrez DO [address] [facility] [address] [place] [address] Referring PhysicianNeurology11/29/24 Shakila Morataya PA Physician AssistantNeurology11/29/24
--- OUTSIDE RECORDS SUMMARY | 2025-08-28 20:08 | XMS_ITS | Patient Health Record ---
Author Organization [facility] Address [address] [place] [address] Care Team Providers Care Lingo Cleaner Name Role Phone RASHAD MENDOZA Primary Care Provider JEANE HERR Unavailable [phone] Allergies No Known Allergies Reason For Referral No Information Medications Medication SIG (Take, Route, Frequency, Duration) Notes Start Date End Date Status Keppra 750 2 tab bidActiveVitamin J4HokozpUldvgq 750 MG Tablet2 tablets in the am and 1 1/2 tablet qhs Orally; Duration: 90 days10/11/2022ctiveBuSpar 5 MG Tablet1 tablet Orally once a day; Duration: 30 days2Active Immunizations Vaccine Route Administration Date Status Comme nts Bexsero IM Intramuscular 09/08/2020 Administered Bexsero 2IM Cjnfrjppximgn91/27/2023dministeredGARDASIL 9 3RD DOSEIM Sloimdmqmwsfz92/13/2017AdministeredHEP A HAVRIXIM Aqsqtpomwovhk52/23/2014 KwinljxyltexFWWOQHPtqrnyb72/23/2014dministeredMENVEOIM Elgvewkqrarcy02/28/2020 AdministeredTDAP FZPLVDPN-NYN-LCVCZASypmybl17/23/2014dministeredzzzGARDASIL HPV #2/3IM Wofiuvtxljdjy49/14/2015dministered Social History Section Notes: loving family, lives in area PMD is loving family, lives in area PMD is loving family, lives in area PMD is loving family, lives [place] PMD is loving family, [place] PMD is loving family, [place] PMD is loving family, [place] PMD is loving family, lives in area PMD is loving family, lives in area PMD is loving family, lives in area PMD is loving family, lives in area PMD is loving family, lives in area PMD is loving family, lives in area PMD is Problems Problem Type SNOMED Code ICD Code Onset Dates Problem Status W/U Status Risk Notes Problem Asthma (829053054) Other asthma (J45.998) ActiveconfirmedProblemInsomnia (530700217)Insomnia, unspecified (G47.00)Active confirmedProblemGeneralized idiopathic epilepsy and epileptic syndromes, intractable, without status epilepticus (G40.319)Activeconfirmed Plan Of Treatment Pending Test Test Name Order Date NEB/MDI RX INITIAL 11/26/2013 VISION 09/24/2016 VISION 12/06/2022 Insurance Providers Payer Name Payer Address Payer Phone Subscriber Number Group Number Insured Name Patient Relationship to Insured Coverage Start Date Coverage End Date [employer] [address] [address] [place] [address] [id number] Emilie Rodríguez Child - Insured has Financial Responsibility Medical (General) History Medical History History ICD Code Asthma Surgical History Surgery Date(Month/Year) Hospitalization History Reason Date(Month/Year)
== END 2025-08-28 20:27 | disposition home or self-care (01) ==
PROVIDERS: Emergency Provider Emergency Medicine
DX: J06.9 Acute upper respiratory infection, unspecified (principal)
CPT/HCPCS: 87804; 87811; 99283